=== PATIENT | male | born 1975 | race Caucasian/White ===

== ENCOUNTER 2018-02-02 13:54 | Emergency (ER) | payer SELFPAY ==
--- NOTE | 2018-02-02 14:07 | Emergency Department Record ---
History of Present Illness - General Chief complaint: Eye Problem Stated complaint: WC/SOMTHING IN LT EYE Time Seen by Provider: 02/02/18 14:07 Source: Patient Mode of Arrival: Ambulatory Limitations: No limitations - History of Present Illness Initial comments: 42 yo male presents with left eye pain for 2 hours. He was working at the hospital on a drop ceiling. He felt debris go in the eye. The eye remains irritated like a foreign body. He does now wear glasses or contacts. No bleeding or blood thinners. chief complaint: Eye pain, Foreign body Onset/Timin -: Hour(s) Onset Description: Sudden Location: Left eye Place: Home If Injury: None Eye Symptoms: Burning, Pain, Redness Severity scale (1-10): 3 If Pain, Quality: Sharp Consistency: Constant Associated Symptoms: None Treatments Prior to Arrival: None - Related Data Visual acuity (L) = 20/: 30 Visual acuity (R) = 20/: 20 With correction: No Hx Tetanus Toxoid Vaccination: Yes Year of Tetanus Vaccination: 2014 Patient Tetanus UTD (within 5 yrs): Yes Home Medications Medication Instructions Recorded Confirmed Last Taken Losartan/Hydrochlorothiazide 50 mg PO DAILY 02/02/18 02/02/18 Unknown [Losartan-Hctz 50-12.5 mg Tab] Allergies Allergy/AdvReac Type Severity Reaction Status Date / Time No Known Drug Allergies Allergy Verified 02/02/18 14:06 Travel Screening - Travel/Exposure Within Last 30 Days Have you traveled within the last 30 days?: No Review of Systems Constitutional: Denies: Chills, Fever, Weakness Eyes: Reports: Eye pain, Vision change. Denies: Eye discharge ENT: Denies: Congestion, Dental pain, Ear pain, Throat pain Respiratory: Denies: Cough Cardiovascular: Denies: Chest pain, Syncope Endocrine: Denies: Fatigue Gastrointestinal: Denies: Abdominal pain, Diarrhea, Nausea, Vomiting Genitourinary: Denies: Dysuria, Frequency Musculoskeletal: Denies: Arthralgia, Back pain, Myalgia Skin: Denies: Bruising, Change in color, Rash Neurological: Denies: Headache Psychiatric: Denies: Anxiety Hematological/Lymphatic: Denies: Easy bleeding, Easy bruising Past Medical History - SOCIAL HISTORY Smoking Status: Former smoker - RESPIRATORY Hx Respiratory Disorders: No - CARDIOVASCULAR Hx Cardio Disorders: Yes Hx Hypertension: Yes - NEURO Hx Neuro Disorders: No - GI Hx GI Disorders: No - Hx Genitourinary Disorders: No - ENDOCRINE Hx Endocrine Disorders: No - MUSCULOSKELETAL Hx Musculoskeletal Disorders: No - PSYCH Hx Psych Problems: No - HEMATOLOGY/ONCOLOGY Hx Hematology/Oncology Disorders: No Family Medical History Any Significant Family History?: No Physical Exam - General General Appearance: Alert, Oriented x3, Cooperative, No acute distress Limitations: No limitations - Head Head exam: Atraumatic, Normal inspection - Eye Eye exam: PERRL, Conjunctival injection (mild injection), EOMI, Other (clear AC) . negative: Normal appearance, Periorbital swelling Pupils: Normal accommodation. negative: Irregular, Unequal With correction: No Image of Eyes: 1 - pupil 2 - small, round FB noted with staining - ENT ENT exam: Normal exam Ear exam: Normal external inspection Nasal Exam: Normal inspection Mouth exam: Normal external inspection - Neck Neck exam: Normal inspection - Extremities Extremities exam: Normal inspection - Neurological Neurological exam: Alert, Oriented X3 - Psychiatric Psychiatric exam: Normal affect, Normal mood - Skin Skin exam: Dry, Intact, Normal color, Warm Course Vital Signs 02/02/18 13:58 Temperature 98.5 F Pulse Rate 64 Respiratory 18 Rate Blood Pressure 112/90 Pulse Ox 95 - Reevaluation(s) Reevaluation #1: 02/02/18 14:32 Slit Lamp performed: Disposition Disposition: Discharge Clinical Impression: Corneal foreign body Qualifiers: Encounter type: initial encounter Laterality: right Qualified Code(s): T15.01XA - Foreign body in cornea, right eye, initial encounter Disposition: Home, Self-Care Condition: (1) Good Instructions: Eye Foreign Body (ED) Additional Instructions: Return to ED if your symptoms worsen or if you have any new concerns. Review the final Emergency Record and test results with your doctor on follow up Motrin for mild pain Use the antibiotic drops every 4 hours. Forms: Patient Portal Access Time of Disposition: 14:33 Quality - Quality Measures Quality Measures: N/A - Blood Pressure Screening Does Patient Have Any of the Following: No Blood Pressure Classification: Hypertensive Reading Systolic Measurement: 112 Diastolic Measurement: 90 Screening for High Blood Pressure: < Pre-Hypertensive BP, F/U Documented > [ [id number]] Pre-Hypertensive Follow-up Interventions: Referral to alternative/primary care provider.
[2018-02-02] MEDS: PROPARACAINE HCL OPTH 15ML BTL OPTH ONE (14:41)
[2018-02-02] MEDS: POLYMYXIN B SULF/TRIMETHOPRIM 10ML BTL OPTH ONE (14:41)
== END 2018-02-02 14:45 | disposition home or self-care (01) ==
LOC: ER 13:54
DX: T15.10XA Foreign body in conjunctival sac, unspecified eye, initial encounter (principal); W22.8XXA Striking against or struck by other objects, initial encounter; Y93.H3 Activity, building and construction; Y92.238 Other place in hospital as the place of occurrence of the external cause; Y99.0 Civilian activity done for income or pay; I10 Essential (primary) hypertension; F17.210 Nicotine dependence, cigarettes, uncomplicated
CPT/HCPCS: 65222; 99283